=== PATIENT | male | born 1950 | race Caucasian/White ===

== ENCOUNTER → 2018-03-14 | Outpatient (CLI) | payer OTHER, MEDICARE ==
[~2018-03-14] MED LIST: ACETAMINOPHEN-1 EAC1 PO; CRESTOR10 MG PO; EC-NAPROSYN500 M1 PO; HYDROCODONE-AP1 EAC6 PO; IBUPROFEN 800800 MG PO; METFORMIN HCL500 MG PO; PROBIOTIC1 EAC1 PO; ROBAXIN 750 MG750 M1 PO; SIMVASTATIN PO; XARELTO15 MG PO; XARELTO20 MG PO; ZOFRAN4 MG PO
[2018-03-14 07:28] LABS: URINE BILIRUBIN NEGATIVE (Negative); URINE BLOOD TRACE (Negative); URINE CLARITY CLEAR; URINE COLOR YELLOW; URINE GLUCOSE-RANDOM 3+ (Negative); URINE KETONES TRACE (Negative); URINE LEUKOCYTES-REFLEX NEGATIVE (Negative); URINE NITRITE-REFLEX NEGATIVE (Negative); URINE PROTEIN NEGATIVE (Negative); URINE UROBILINOGEN 0.2 E.U./dl (0.2-1.0)
[2018-03-14 07:32] LABS: ABSOLUTE EOSINOPHILS 0.2 thou/uL (0.0-0.7); ABSOLUTE LYMPHOCYTES 1.9 thou/uL (0.8-5.3); ABSOLUTE MONOCYTES 0.8 thou/uL (0.0-1.2); ABSOLUTE NEUTROPHILS 3.4 thou/uL (1.6-8.1); BASOPHILS 0.7 %; EOSINOPHILS 3.7 %; HEMATOCRIT 45.2 % (42.0-52.0); HEMOGLOBIN 15.3 gm/dL (14.0-18.0); LYMPHOCYTES 30.3 %; MCH 31.4 pg (26.0-34.0); MCHC 33.9 g/dL (28.0-37.0); MCV 92.6 fL (80.0-100.0); MPV 6.9 fl. (7.2-11.1); NUCLEATED RBCS 0 /100WBC; PLATELET COUNT* 160 thou/uL (150-400); POLYS 53.3 %; RBC 4.88 mil/uL (4.50-6.00); RDW-CV 13.3 % (10.5-14.5); WBC 6.4 thou/uL (4.0-11.0)
[2018-03-14 08:07] LABS: ALBUMIN 3.7 g/dL (3.4-5.0); CALCIUM 8.6 mg/dL (8.5-10.1); CREATININE 1.2 mg/dL (0.6-1.3); DIRECT BILIRUBIN 0.1 mg/dL (<0.1-0.3); POTASSIUM 4.2 mmol/L (3.5-5.1); TOTAL BILIRUBIN 0.5 mg/dL (<0.1-1.0); TOTAL PROTEIN 7.2 g/dL (6.4-8.2)
== END ==
LOC: M.LAB 06:46 → M.CT 08:30
PROVIDERS: Internal Medicine
DX: K76.0 Fatty (change of) liver, not elsewhere classified (principal); K57.30 Diverticulosis of large intestine without perforation or abscess without bleeding; I70.0 Atherosclerosis of aorta; M46.04 Spinal enthesopathy, thoracic region; Z68.33 Body mass index [BMI] 33.0-33.9, adult

== ENCOUNTER 2018-12-31 17:52 | Emergency (ER) | payer MEDICARE, OTHER ==
[~2018-12-31] VITALS: Ht 182.9 cm; Wt 106.6 kg
[2018-12-31] MEDS ORDERED: XARELTO20 MG PO (18:06)
[2018-12-31] MEDS ORDERED: ZOCOR20 MG PO (18:06)
[2018-12-31] MEDS ORDERED: ACETAMINOPHEN-1 EAC1 PO (19:31)
[2018-12-31 19:47] VITALS: BP 135/84
== END 2018-12-31 19:49 | disposition home or self-care (01) ==
LOC: M.ERS 17:52
DX: S16.1XXA Strain of muscle, fascia and tendon at neck level, initial encounter (principal); S63.592A Other specified sprain of left wrist, initial encounter; E11.9 Type 2 diabetes mellitus without complications; Z90.49 Acquired absence of other specified parts of digestive tract; Z98.890 Other specified postprocedural states; W01.0XXA Fall on same level from slipping, tripping and stumbling without subsequent striking against object, initial encounter; Y93.89 Activity, other specified; Y92.89 Other specified places as the place of occurrence of the external cause; Y99.8 Other external cause status

== ENCOUNTER 2020-12-27 00:51 | Emergency (ER) | payer MEDICARE ==
[~2020-12-27] VITALS: Ht 182.9 cm; Wt 102.1 kg
[~2020-12-27 00:51] MED LIST changes: +ZOCOR20 MG PO
[2020-12-27] MEDS ORDERED: NORFLEX100 MG PO (02:50)
[2020-12-27] MEDS ORDERED: ACETAMINOPHEN-1 EAC2 PO (02:50)
[2020-12-27 03:55] VITALS: BP 119/75
== END 2020-12-27 03:55 | disposition home or self-care (01) ==
LOC: M.ERS 00:51
DX: M43.6 Torticollis (principal); M48.02 Spinal stenosis, cervical region; E11.9 Type 2 diabetes mellitus without complications; Z90.89 Acquired absence of other organs